=== PATIENT | male | born 1950 | race Native Hawaiian/Other Pacific Islander ===

== ENCOUNTER 2017-10-28 11:21 | Emergency (ER) | payer OTHER ==
[~2017-10-28] VITALS: Ht 170.2 cm; Wt 89.8 kg
[2017-10-28] MEDS ORDERED: METO50TA63 PO (11:39)
[2017-10-28] MEDS ORDERED: B-1100 MG (11:42)
[2017-10-28] MEDS ORDERED: CLOP75TA2 PO (11:42)
[2017-10-28] MEDS ORDERED: ASPIRIN81 M1 (11:43)
[2017-10-28] MEDS ORDERED: APRODINE1 TAB (11:43)
[2017-10-28] MEDS ORDERED: CITALOPRAM40 MG PO (11:43)
[2017-10-28] MEDS ORDERED: RANITIDINE 150150 MG PO (11:44)
[2017-10-28] MEDS ORDERED: AMLODIPINE BESYLATE PO (11:44)
[2017-10-28] MEDS ORDERED: MYRBETRIQ50 MG OR (11:44)
[2017-10-28] MEDS ORDERED: METFORMIN HYDR500 MG PO (11:44)
[2017-10-28] MEDS ORDERED: BENICAR40 MG PO (11:44)
[2017-10-28] MEDS ORDERED: HYDR100TA PO (11:45)
[2017-10-28] MEDS ORDERED: ISOS30TA17 PO (11:47)
[2017-10-28] MEDS ORDERED: TOUJEO SOL300 UNIT/M SC (11:47)
[2017-10-28 14:41] LABS: PLATELET COUNT 262 K/uL (142-355)
[2017-10-28 16:28] LABS: POTASSIUM 3.1 mmol/L (3.6-5.2)
[2017-10-28 17:53] VITALS: BP 121/72; TEMP 97.2
== END 2017-10-28 18:06 | disposition home or self-care (01) ==
LOC: ED 11:21
PROVIDERS: Specialist
DX: E86.9 Volume depletion, unspecified (principal); R06.09 Other forms of dyspnea
CPT/HCPCS: 36415; 36600; 80053; 82550; 82553; 82805; 83735; 83880; 84100; 84484; 85027; 85379; 96365; 99284; J1720; J3411; J3475; J3490

== ENCOUNTER 2018-01-11 00:01 | Emergency (ER) | payer OTHER ==
[~2018-01-11] VITALS: Ht 170.2 cm; Wt 86.6 kg
[~2018-01-11 00:01] MED LIST: AMLODIPINE BESYLATE PO; APRODINE1 TAB; ASPIRIN81 M1; B-1100 MG; BENICAR40 MG PO; CITALOPRAM40 MG PO; CLOP75TA2 PO; HYDR100TA PO; ISOS30TA17 PO; METFORMIN HYDR500 MG PO; METO50TA63 PO; MYRBETRIQ50 MG OR; RANITIDINE 150150 MG PO; TOUJEO SOL300 UNIT/M SC
[2018-01-11 02:10] LABS: PLATELET COUNT 240 K/uL (142-355)
[2018-01-11 02:16] LABS: POTASSIUM 3.6 mmol/L (3.6-5.2); SODIUM 135 mmol/L (136-145)
[2018-01-11 04:50] VITALS: BP 174/76; TEMP 98.1
== END 2018-01-11 04:50 | disposition short-term general hospital (02) ==
LOC: ED 00:01
PROVIDERS: Specialist
DX: R06.09 Other forms of dyspnea (principal); I45.2 Bifascicular block
CPT/HCPCS: 36415; 80053; 83605; 83735; 83880; 84100; 84443; 84484; 85027; 99284

== ENCOUNTER 2018-01-11 04:53 | Outpatient (CLI) | payer OTHER | END 2018-01-11 05:21 | disposition short-term general hospital (02) | LOC: AMB 04:53 | DX: R06.09 Other forms of dyspnea (principal); I45.2 Bifascicular block | CPT/HCPCS: A0425; A0429 ==